=== PATIENT | male | born 1970 ===

== ENCOUNTER 2017-01-22 11:35 | Day surgery (SDC) | payer BC ==
[~2017-01-22 11:35] MED LIST: Acetaminophen TAB* 325 MG PO ONE; Buffered Lidocaine 0.9% SYRIN* 5 ML/SYR SYRINGE INTRADERM ONE; Dexamethasone IV* 4 MG/ML 1 ML (4 MG) IV SLOW PU ONE; Famotidine IV* 10 MG/ML 2 ML (20 mg) IV ONE; Ketorolac INJ* 30 MG/ML 1 ML VIAL ONE; Lidocaine 2% PF * 5 ML VIAL ONE; Ondansetron INJ* 2 MG/ML VIAL ONE; Propofol* 10 MG/ML 20 ML BTL IV PUSH ONE
[2017-01-22] MEDS ORDERED: Dexamethasone IV* 4 MG/ML 1 ML (4 MG) ONE (11:49)
[2017-01-22] MEDS ORDERED: Famotidine IV* 10 MG/ML 2 ML (20 mg) ONE (11:50)
[2017-01-22] MEDS ORDERED: Acetaminophen TAB* 325 MG ONE (11:50)
[2017-01-22] MEDS ORDERED: Buffered Lidocaine 0.9% SYRIN* 5 ML/SYR SYRINGE ONE (11:50)
[2017-01-22] MEDS ORDERED: Clindamycin 900 MG IVPREMIX(* 900 MG/50 ML SDV IV ONE (11:50)
[2017-01-22] MEDS ORDERED: Bupivacaine 0.5% SDV PF* 30 ML VIAL ONE (14:23)
[2017-01-22] MEDS ORDERED: fentaNYL* 50 MCG/ML 2 ML VIAL (100 MCG VIAL) ONE (15:10)
[2017-01-22] MEDS ORDERED: Midazolam* 1 MG/ML 2 ML VIAL (2 MG) ONE (15:10)
[2017-01-22] MEDS ORDERED: Ibuprofen TAB* 600 MG PO PRN (15:39)
[2017-01-22] MEDS ORDERED: Ondansetron INJ* 2 MG/ML VIAL IV PRN (15:39)
[2017-01-22] MEDS ORDERED: oxyCODONE TAB* 5 MG TAB PO PRN (15:39)
[2017-01-22] MEDS ORDERED: fentaNYL* 50 MCG/ML 2 ML VIAL (100 MCG VIAL) IV PRN (15:39)
[2017-01-22] MEDS ORDERED: PROCHLORPERAZINE INJ 5 MG/ML 2 ML VIAL IV PRN (15:39)
[2017-01-22] MEDS ORDERED: HYDROmorphone INJ* 1 MG/ML CARPUJECT SYRINGE IV PRN (15:39)
[2017-01-22] MEDS ORDERED: HYDROcodone/ACETAMIN 5-325 MG* 1 TAB PO PRN (15:39)
[2017-01-22 19:03] VITALS: BP 122/79
--- NOTE | 2017-01-23 12:58 | OP ---
DATE OF OPERATION: 01/22/17 [facility] DATE OF : 70 SURGEON: Trey Acuña MD. [place] [employer] OPERATOR: LILY Carvajal. An per diem physical therapist assistant was needed for the entirety of the procedure to aid in positioning of the hand and retraction and assistance with microsurgical portion of the case. ANESTHESIOLOGIST: Dr. Renita Samayoa. ANESTHESIA: General. PRE-OP DIAGNOSIS: Left index finger ulnar digital nerve laceration at the level of the middle phalanx. POST-OP DIAGNOSIS: Left index finger ulnar digital nerve laceration at the level of the middle phalanx. OPERATIVE PROCEDURE: Repair of left index finger ulnar digital nerve with conduit. INDICATIONS: Sherif had a knife puncture the index finger and lacerate the digital nerve. The finger was warm and well perfused but just has diminished sensation on that side of the finger tip. We talked about risks and benefits and he wanted to the proceed with surgery. ESTIMATED BLOOD LOSS: 2 mL. COMPLICATIONS: None. FINDINGS: As expected. DESCRIPTION OF PROCEDURE: Sherif was seen in the preoperative holding area. We came back to the room. The arm was prepped and draped in the usual fashion. A time-out was performed. The arm was exsanguinated with the Esmarch and the tourniquet inflated to 250 mmHg. The hand was placed in the lead hand. Dissection was carried down along the mid axial line and then brought back obliquely across the PIP joint flexion crease and distally it was brought back obliquely on to the fingertip. The digital nerve was encountered. A full thickness flap was raised for the part of the flexor tendon sheath to the midline. The flap was sewn back. The digital nerve laceration was identified. The nerve was prepared. The operating microscope was brought in. I used a tongue depressor and an 11 blade to trim back the traumatized edges of the nerve back to healthy nerve. We then open up a 2 mm x 10 mm Avance synthetic conduit. This was brought into the operating field. With the use of the microscope, a 9-0 nylon suture was used to bring the proximal aspect of the nerve into the conduit with one mattress suture tied over the conduit. I then went distal and brought the distal end of the nerve into the conduit with another mattress 9-0 nylon suture. At this point, everything looked very good. Both ends of the nerve were docked nicely into the conduit. The wound was irrigated out. The digital artery deep to the nerve was intact. The flexor tendon was intact. The skin flap was brought back and sewed in place with 4-0 Monocryl suture. The tourniquet was deflated. The hand pinked up immediately. The finger was dressed with Xeroform, 4x4's, and then a splint was placed with the index and middle fingers in the protected position. He was then awoken up and taken to the recovery room in stable condition. [id number]/[facility] #: [id number] MTDD
== END 2017-01-22 19:05 | disposition home or self-care (01) ==
LOC: OR 11:35
PROVIDERS: ATTEND Orthopaedic Surgery Hand Surgery
DX: S64.491A Injury of digital nerve of left index finger, initial encounter (principal); W26.0XXA Contact with knife, initial encounter; Y92.9 Unspecified place or not applicable; Z88.0 Allergy status to penicillin; Z88.1 Allergy status to other antibiotic agents; Z88.8 Allergy status to other drugs, medicaments and biological substances
CPT/HCPCS: A9270-GY; C1763; J1100; J1885; J2250; J2405; J2704; J3010